=== PATIENT | female | born 1990 | race Two or more races ===

== ENCOUNTER 2025-02-01 09:11 | Outpatient (CLI) | payer OTHER | END 2025-02-01 09:12 | disposition home or self-care (01) | LOC: PRENATAL 09:11 | PROVIDERS: ATTEND Obstetrics & Gynecology Maternal & Fetal Medicine | DX: Z76.1 Encounter for health supervision and care of foundling (principal) ==

== ENCOUNTER 2025-02-19 08:50 | Outpatient (CLI) | payer OTHER | END 2025-02-19 08:51 | disposition home or self-care (01) | LOC: PRENATAL 08:50 | PROVIDERS: ATTEND Obstetrics & Gynecology Maternal & Fetal Medicine | DX: O44.00 Complete placenta previa NOS or without hemorrhage, unspecified trimester (principal); O34.219 Maternal care for unspecified type scar from previous cesarean delivery; Z3A.19 19 weeks gestation of pregnancy ==

== ENCOUNTER 2025-03-11 16:33 | Emergency (ER) | payer OTHER ==
[~2025-03-11] VITALS: Ht 154.9 cm; Wt 64.4 kg
[2025-03-11] MEDS ORDERED: PRENATA CHEWAB1 EACH (17:50)
[2025-03-11 19:00] LABS: URINE BACTERIA 1701.2 uL (0.0-1933); URINE EPITHELIAL CELLS 17.5 uL (0.0-38.8); URINE WBC 122.2 uL (0.0-23.2)
[2025-03-11 19:02] LABS: PH,URINE 6.5 (5.0-8.0); URINE APPEARANCE Clear; URINE BILIRRUBIN Negative (NEGATIVE); URINE BLOOD Negative; URINE COLOR Yellow; URINE GLUCOSE Negative (NEGATIVE); URINE KETONE Negative (NEGATIVE); URINE LEUKOCYTE Moderate; URINE NITRATE Negative; URINE PROTEIN Negative (NEGATIVE); URINE UROBILINOGEN 0.2 E.U./dl
[2025-03-11 19:03] LABS: URINE CAST 0.29 uL (0.0-1.40); URINE RBC 0.4 uL (0.0-20.8)
[2025-03-11] MEDS ORDERED: PEPCID AC20 MG PO (19:25)
[2025-03-11] MEDS ORDERED: AMOX1TAB5 PO (19:25)
== END 2025-03-11 19:43 | disposition home or self-care (01) ==
LOC: ER 16:33
PROVIDERS: General Practice
DX: O23.32 Infections of other parts of urinary tract in pregnancy, second trimester (principal); N39.0 Urinary tract infection, site not specified; Z3A.22 22 weeks gestation of pregnancy; Z91.013 Allergy to seafood; Z88.1 Allergy status to other antibiotic agents

== ENCOUNTER → 2025-05-14 13:39 | Outpatient (CLI) | payer OTHER ==
[~2025-05-14 13:39] MED LIST: AMOX1TAB5 PO; PEPCID AC20 MG PO; PRENATA CHEWAB1 EACH
== END | disposition home or self-care (01) ==
LOC: PRENATAL 13:39
PROVIDERS: ATTEND Obstetrics & Gynecology Maternal & Fetal Medicine
DX: O26.849 Uterine size-date discrepancy, unspecified trimester (principal); O36.8199 Decreased fetal movements, unspecified trimester, other fetus; O99.019 Anemia complicating pregnancy, unspecified trimester; Z3A.32 32 weeks gestation of pregnancy

== ENCOUNTER 2025-06-06 11:26 | Outpatient (CLI) | payer OTHER | END 2025-06-06 11:27 | disposition home or self-care (01) | LOC: PRENATAL 11:26 | PROVIDERS: ATTEND Obstetrics & Gynecology Maternal & Fetal Medicine | DX: O26.849 Uterine size-date discrepancy, unspecified trimester (principal); O36.8130 Decreased fetal movements, third trimester, not applicable or unspecified; O99.019 Anemia complicating pregnancy, unspecified trimester; O34.219 Maternal care for unspecified type scar from previous cesarean delivery; Z3A.36 36 weeks gestation of pregnancy ==

== ENCOUNTER 2025-06-28 10:32 | Inpatient (IN) | payer OTHER ==
[~2025-06-28] VITALS: Ht 154.9 cm; Wt 3.6 kg
[2025-06-28 10:14] LABS: BASO % 0.7 % (0.1-1.2); EOS # 0.42 (0.04-0.54); EOS % 4.7 % (0.7-7.0); LYMPH # 1.94 (1.18-3.74); LYMPH % 21.8 % (19.3-53.1); MEAN PLATELET VOLUME 10.90 fl (9.4-12.4); MONO # 0.50 (0.24-0.82); MONO % 5.6 % (4.7-12.5); NEUT # 5.78 (1.56-6.13); NEUT % 65.0 % (34.0-71.1); RED CELL DISTRIBUTION WIDTH 15.5 % (11.6-14.4)
[2025-06-28 10:15] LABS: URINE APPEARANCE Clear; URINE BILIRRUBIN Negative (NEGATIVE); URINE BLOOD Negative; URINE COLOR Yellow; URINE GLUCOSE Negative (NEGATIVE); URINE KETONE Negative (NEGATIVE); URINE LEUKOCYTE Trace; URINE NITRATE Negative; URINE PROTEIN Trace (NEGATIVE); URINE UROBILINOGEN 0.2 E.U./dl
[2025-06-28 10:20] LABS: URINE BACTERIA 3405.4 uL (0.0-1933); URINE EPITHELIAL CELLS 33.2 uL (0.0-38.8); URINE RBC 2.0 uL (0.0-20.8); URINE WBC 31.0 uL (0.0-23.2)
[2025-06-28] MEDS ORDERED: PRENATABS RX T1 EACH PO (10:33)
[2025-06-28 10:46] LABS: URINE CAST 0.29 uL (0.0-1.40)
[2025-06-28 11:03] LABS: ALT/SGPT 20.0 U/L (12-78); AST/SGOT 10.0 U/L (15-37); BILIRUBIN TOTAL 0.27 mg/dL (0.3-1.2); BUN CREA RATIO 12.0 (7.0-25.0); CREATININE SERUM 0.5 mg/dL (0.55-1.02); GFR 142.09; GLOBULINA 3.6 G/DL (2.4-3.5); GLUCOSE FASTING 97.0 mg/dL (65-100); OSMOLALITY SERUM 277.0 MOSM/KG (275-295)
[2025-06-28 12:15] LABS: INR 0.95
[2025-07-01] MEDS ORDERED: AMOX1TAB5 (09:19)
[2025-07-05 07:14] VITALS: BP 118/72
[2025-07-05] MEDS ORDERED: AMPICILLIN SODIUM 1,000 MG VIAL ONE (14:06)
[2025-07-05] MEDS ORDERED: OXYTOCIN 10 UNITS/ML VIAL ONE ×2 (14:16→19:43)
[2025-07-05] MEDS ORDERED: ERYTHROMYCIN BASE OPHT 1GM EACH TUBE OP ONE (14:17)
[2025-07-05] MEDS ORDERED: MORPHINE SULFATE 4 MG/ML CARTRIDGE IV PRN (16:30)
[2025-07-05] MEDS ORDERED: DOCUSATE SODIUM 100MG CAP PO SCH (17:00)
[2025-07-05] MEDS ORDERED: OXYTOCIN 1,000 ML IV SCH (17:30)
[2025-07-05] MEDS ORDERED: RINGERS SOLUTION,LACTATED 1,000 ML IV SCH (17:30)
[2025-07-05] MEDS ORDERED: SIMETHICONE 125 MG CAPSULE PO SCH (18:00)
[2025-07-05 20:41] VITALS: BP 128/71
[2025-07-05 23:57] LABS: BASO % 0.3 % (0.1-1.2); EOS # 0.08 (0.04-0.54); EOS % 0.7 % (0.7-7.0); LYMPH # 1.95 (1.18-3.74); LYMPH % 15.9 % (19.3-53.1); MEAN PLATELET VOLUME 10.50 fl (9.4-12.4); MONO # 0.79 (0.24-0.82); MONO % 6.5 % (4.7-12.5); NEUT # 9.24 (1.56-6.13); NEUT % 75.5 % (34.0-71.1); RED CELL DISTRIBUTION WIDTH 15.5 % (11.6-14.4)
[2025-07-06 01:14] VITALS: BP 138/81
[2025-07-06 06:26] VITALS: BP 129/81
[2025-07-06 08:41] VITALS: BP 126/80
[2025-07-06 13:31] VITALS: BP 119/71
[2025-07-06 16:27] VITALS: BP 117/78
[2025-07-07 00:29] VITALS: BP 123/76
[2025-07-07 08:00] VITALS: BP 109/62
[2025-07-07 16:06] VITALS: BP 124/72
[2025-07-07 23:59] VITALS: BP 124/80
[2025-07-08 08:31] VITALS: BP 115/75
== END 2025-07-08 10:19 | disposition home or self-care (01) | DRG 785 ==
LOC: OB/GYN 07-05 09:18 → O/R 07-05 13:00 → OB/GYN 07-05 13:00
PROVIDERS: ADMIT Obstetrics & Gynecology; ATTEND Obstetrics & Gynecology
PROC: 0UB70ZZ Excision of Bilateral Fallopian Tubes, Open Approach (ICD-10-PCS; 2025-07-05)
PROC: 4A1HXCZ Monitoring of Products of Conception, Cardiac Rate, External Approach (ICD-10-PCS; 2025-07-05)
PROC: 10D00Z1 Extraction of Products of Conception, Low, Open Approach (ICD-10-PCS; principal; 2025-07-05 17:00)
DX: O34.211 Maternal care for low transverse scar from previous cesarean delivery (principal); O99.824 Streptococcus B carrier state complicating childbirth; Z3A.39 39 weeks gestation of pregnancy; Z37.0 Single live birth

== ENCOUNTER 2025-07-01 09:05 | Outpatient (CLI) | payer OTHER ==
[2025-07-01 08:36] VITALS: BP 122/82
[~2025-07-01 09:05] MED LIST changes: +PRENATABS RX T1 EACH PO
[2025-07-01] MEDS ORDERED: AMOX1TAB5 (09:19)
[2025-07-01] MEDS ORDERED: RINGERS SOLUTION,LACTATED 1,000 ML IV SCH (09:30)
[2025-07-01 11:34] VITALS: BP 123/77; O2SAT 100
[2025-07-01 15:17] VITALS: BP 125/74; O2SAT 100
[2025-07-01 15:26] VITALS: BP 125/74
== END 2025-07-01 18:03 | disposition home or self-care (01) ==
LOC: OBS/DEL 09:05
PROVIDERS: ATTEND Obstetrics & Gynecology
DX: O26.893 Other specified pregnancy related conditions, third trimester (principal); O26.849 Uterine size-date discrepancy, unspecified trimester; O36.8130 Decreased fetal movements, third trimester, not applicable or unspecified; Z3A.38 38 weeks gestation of pregnancy